=== PATIENT | male | born 1955 | race Caucasian/White ===

== ENCOUNTER → 2025-03-21 11:08 | Outpatient (REF) | payer MEDICARE, OTHER, SELFPAY | LOC: HWRAD 11:08 | PROVIDERS: ATTENDING PHYSICIAN Specialist; FAMILY PHYSICIAN Family Medicine | DX: R79.89 Other specified abnormal findings of blood chemistry (principal) | CPT/HCPCS: 76770 ==

== ENCOUNTER → 2025-05-15 07:56 | Outpatient (REF) | payer MEDICARE, OTHER, SELFPAY ==
[2025-05-15 11:43] LABS: Hematocrit 43.6 % (39.0-52.0); Hemoglobin 14.2 g/dL (13.0-18.0); Mean Corp Hgb Conc. 32.6 g/dL (33.0-37.0); Mean Corpuscular Volume 93.6 fL (80.0-94.0); Platelet Count 154 10^3/uL (130-400); Red Cell Dist. Width 12.4 % (11.5-14.5)
[2025-05-15 11:53] LABS: Blood Urea Nitrogen 31 mg/dl (9-20); Calcium 9.6 mg/dl (8.4-10.2); Carbon Dioxide 30 mmol/L (22-30); Chloride 107 mmol/L (98-107); Glucose 111 mg/dl (70-99); Potassium 5.6 mmol/L (3.5-5.1); Sodium 142 mmol/L (135-145); eGFR 42.83
== END ==
LOC: SDSPAT 07:56
PROVIDERS: ATTENDING PHYSICIAN Specialist; FAMILY PHYSICIAN Family Medicine
DX: Z01.818 Encounter for other preprocedural examination (principal)
CPT/HCPCS: 36415; 80048; 85027; 93005

== ENCOUNTER 2025-05-19 06:08 | Day surgery (SDC) | payer MEDICARE, OTHER, SELFPAY ==
[2025-05-15 14:03] VITALS: BMI 34.1
--- NOTE | 2025-05-16 13:13 | PTCARENOTE ---
Anastasiya @ Dr. Azar office notified of patients 05/15 potassium- 5.6; GFR;42.83; Creat- 1.7
--- NOTE | 2025-05-16 13:40 | PTCARENOTE ---
Patients 05/15 potassium 5.6- Dr. Maguire notified- potassium to be repeated AM of surgery
[2025-05-19] VITALS (9 sets, daily range): BP systolic 131–154; BP diastolic 66–85; BMI 34.1; BMI 32.7
[2025-05-19] MEDS: NORMOSOL-R/PLASMALYTE-A 1000 IV (08:13)
--- NOTE | 2025-05-19 08:14 | PTCARENOTE ---
Gold ring given to . Will monitor patient.
== END 2025-05-19 10:32 | disposition home or self-care (01) ==
LOC: SDS 06:08
PROVIDERS: ATTENDING PHYSICIAN Specialist
DX: N13.2 Hydronephrosis with renal and ureteral calculous obstruction (principal); N28.9 Disorder of kidney and ureter, unspecified
CPT/HCPCS: 52351; 74018; 76000; C1894